=== PATIENT | male | born 1935 | race Caucasian/White ===

== ENCOUNTER → 2016-09-29 | Outpatient (CLI) | payer OTHER, MEDICARE ==
[~2016-09-29] MED LIST: ASPCH81; CLTP PO; HYDC25 PO; LISI5TAB3 PO; MAGNTAB4 PO; MULT-506 PO; PRAV20TA PO; PRLSR20 PO
[2016-09-29 12:49] LABS: ALT/SGPT 34 U/L (12-78); AST/SGOT 26 U/L (15-37); BLOOD UREA NITROGEN 15 mg/dl (7-18); BUN/CREATININE RATIO 16.2 (10-20); CALCIUM 9.2 mg/dl (8.5-10.1); CARBON DIOXIDE 24 mmol/L (21-32); CHLORIDE 102 mmol/L (98-107); CHOLESTEROL 184 mg/dl (0-200); CREATININE 0.91 mg/dl (0.60-1.40); GLUCOSE 108 mg/dl (70-99); POTASSIUM 3.8 mmol/L (3.5-5.1); SODIUM 136 mmol/L (136-145); TRIGLYCERIDES 117 mg/dl (0-150); VERY LOW DENSITY LIPOPROT CALC 23 mg/dl
[2016-09-29 12:53] LABS: ALB/GLOB RATIO 1.6 (0.9-2); ALKALINE PHOSPHATASE 72 U/L (45-117); CHOLESTEROL/HDL RATIO 3.1; HDL CHOLESTEROL 60 mg/dl
[2016-09-29 12:54] LABS: ESTIMATED AVERAGE GLUCOSE 128 mg/dl; HA1C FLAG Normal (Normal)
== END | disposition home or self-care (01) ==
LOC: C.LABSPEC 12:11
PROVIDERS: ATTEND Internal Medicine
DX: E78.5 Hyperlipidemia, unspecified (principal); I10 Essential (primary) hypertension; R73.9 Hyperglycemia, unspecified

== ENCOUNTER → 2017-03-30 | Outpatient (CLI) | payer OTHER, MEDICARE ==
[2017-03-30 13:15] LABS: ESTIMATED AVERAGE GLUCOSE 143 mg/dl; HA1C FLAG Normal (Normal)
[2017-03-30 13:30] LABS: AST/SGOT 23 U/L (15-37); BLOOD UREA NITROGEN 15 mg/dl (7-18); BUN/CREATININE RATIO 16.7 (10-20); CALCIUM 8.7 mg/dl (8.5-10.1); CARBON DIOXIDE 26 mmol/L (21-32); CHLORIDE 109 mmol/L (98-107); CHOLESTEROL 192 mg/dl (0-200); CREATININE 0.91 mg/dl (0.60-1.40); GLUCOSE 122 mg/dl (70-99); POTASSIUM 3.8 mmol/L (3.5-5.1); SODIUM 142 mmol/L (136-145)
[2017-03-30 13:34] LABS: ALB/GLOB RATIO 1.3 (0.9-2); ALKALINE PHOSPHATASE 75 U/L (45-117); ALT/SGPT 35 U/L (12-78); CHOLESTEROL/HDL RATIO 3.4; HDL CHOLESTEROL 56 mg/dl; TRIGLYCERIDES 29 mg/dl (0-150); VERY LOW DENSITY LIPOPROT CALC 6 mg/dl
== END | disposition home or self-care (01) ==
LOC: C.LABSPEC 12:21
PROVIDERS: ATTEND Internal Medicine
DX: Z00.00 Encounter for general adult medical examination without abnormal findings (principal); R73.9 Hyperglycemia, unspecified; E78.5 Hyperlipidemia, unspecified; I10 Essential (primary) hypertension

== ENCOUNTER → 2017-04-04 | Outpatient (CLI) | payer OTHER, MEDICARE | END | disposition home or self-care (01) | LOC: C.LABSPEC 13:11 | PROVIDERS: ATTEND Internal Medicine | DX: Z12.11 Encounter for screening for malignant neoplasm of colon (principal) ==

== ENCOUNTER → 2017-10-04 | Outpatient (CLI) | payer OTHER, MEDICARE ==
[2017-10-04 13:15] LABS: BASO % 0.5 %; BASO ABS # 0.04 K/uL (0-0.2); EOS ABS # 0.17 K/uL (0-0.5); HEMATOCRIT 41.3 % (42-52); IG# 0.02 K/uL (0.00-0.02); LYMPH % 22.2 %; LYMPH ABS # 1.91 K/uL (1.2-3.4); MEAN CELL VOLUME 89.4 fL (80-100); MEAN CORPUSCULAR HEMOGLOBIN 32.5 pg (25-34); MEAN CORPUSCULAR HGB CONC 36.3 g/dl (32-36); MEAN PLATELET VOLUME 10.6 fL (7.4-10.4); MONO % 9.3 %; NEUT % 65.8 %; NEUT ABS # 5.65 K/uL (1.4-6.5); PLATELET COUNT 215 K/uL (130-400); RED CELL DISTRIBUTION WIDTH SD 45.7 fL (36.4-46.3); WHITE BLOOD COUNT 8.59 K/uL (4.8-10.8)
[2017-10-04 13:37] LABS: HEMOGLOBIN A1C 6.6 % (4.5-5.6)
[2017-10-04 14:42] LABS: BLOOD UREA NITROGEN 20 mg/dl (7-18); CREATININE 0.92 mg/dl (0.60-1.40); GLUCOSE 133 mg/dl (70-99)
[2017-10-04 14:43] LABS: CALCIUM 9.1 mg/dl (8.5-10.1); CARBON DIOXIDE 26 mmol/L (21-32); CHOLESTEROL 185 mg/dl (0-200); POTASSIUM 3.6 mmol/L (3.5-5.1); SODIUM 138 mmol/L (136-145)
[2017-10-04 14:45] LABS: LDL CHOLESTEROL (DIRECT) 121 mg/dl
== END | disposition home or self-care (01) ==
LOC: C.LABSPEC 12:44
PROVIDERS: ATTEND Internal Medicine
DX: I10 Essential (primary) hypertension (principal); E78.5 Hyperlipidemia, unspecified; R73.9 Hyperglycemia, unspecified; M25.511 Pain in right shoulder; M25.512 Pain in left shoulder

== ENCOUNTER → 2017-10-05 | Outpatient (CLI) | payer OTHER, MEDICARE ==
--- NOTE | 2017-10-05 09:15 | DIAGNOSTIC IMAGING REPORT ---
RIGHT SHOULDER 3 VIEWS CLINICAL HISTORY: Right shoulder pain. FINDINGS: 3 views of the right shoulder are obtained. No prior studies are available for comparison at the time of dictation. The skeletal structures are osteopenic. No fracture or dislocation is seen. Productive degenerative change is identified at the acromioclavicular joint. Degenerative sclerosis is seen in the greater tuberosity of the humeral head. The glenohumeral articulation is preserved. The overlying soft tissues are within normal limits. The visualized right upper lobe lung parenchyma appears clear. IMPRESSION: Osteopenia and arthritic change as above. No acute bony abnormality is identified. Electronically signed by: Fadi Paez M.D. 10/05/2017 9:14 AM Dictated Date/Time: 10/05/2017 9:11 AM
--- NOTE | 2017-10-05 09:25 | DIAGNOSTIC IMAGING REPORT ---
L SHOULDER MIN 2 VIEWS ROUTINE CLINICAL HISTORY: Left shoulder pain COMPARISON: None. DISCUSSION: No fractures or dislocations are visualized. There are degenerative changes within the AC joint with inferior hypertrophic spurring. IMPRESSION: 1. No acute fractures or dislocations 2. Degenerative changes within the AC joint with inferior hypertrophic spurring Electronically signed by: Neri Barrera M.D. 10/05/2017 9:23 AM Dictated Date/Time: 10/05/2017 9:23 AM
== END | disposition home or self-care (01) ==
LOC: C.RAD 08:51
PROVIDERS: ATTEND Internal Medicine
DX: M25.511 Pain in right shoulder (principal); M25.512 Pain in left shoulder; M85.811 Other specified disorders of bone density and structure, right shoulder; M19.011 Primary osteoarthritis, right shoulder; M19.012 Primary osteoarthritis, left shoulder

== ENCOUNTER → 2017-12-07 | Outpatient (CLI) | payer OTHER, MEDICARE ==
--- NOTE | 2017-12-07 09:05 | DIAGNOSTIC IMAGING REPORT ---
R KNEE 1 OR 2 VIEWS ROUTINE HISTORY: 82 years-old Male RIGHT KNEE PAIN acute right knee pain COMPARISON: None available TECHNIQUE: 2 views of the right knee FINDINGS: 5.4 cm lesion of the distal femoral diaphysis with nonaggressive features demonstrates rings and arcs matrix. Peripheral arterial calcifications are noted. Mild tricompartmental osteoarthritis with trace joint effusion. No acute fracture or dislocation. IMPRESSION: 1. Trace joint effusion without acute fracture or dislocation. 2. Mild tricompartmental osteoarthritis. 3. 5.4 cm chondroid lesion of the distal femoral diaphysis suggests an endochondroma. The above report was generated using voice recognition software. It may contain grammatical, syntax or spelling errors. Electronically signed by: Trev Maya M.D. 12/07/2017 9:04 AM Dictated Date/Time: 12/07/2017 9:02 AM
== END | disposition home or self-care (01) ==
LOC: C.RAD 08:29
PROVIDERS: ATTEND Internal Medicine
DX: M25.561 Pain in right knee (principal); M25.861 Other specified joint disorders, right knee

== ENCOUNTER 2019-12-26 05:07 | Observation (INO) ==
[2019-12-04 13:20] LABS: Basophils # (auto) 0.01 K/uL (0-0.2); Basophils % (auto) 0.1 %; Hematocrit (blood only) 38.6 % (42-52); Hemoglobin 13.6 g/dL (14.0-18.0); Immature Granulocytes # (auto) 0.05 K/uL (0.00-0.02); Immature Granulocytes % (auto) 0.5 %; Lymphocytes # (auto) 0.81 K/uL (1.2-3.4); Lymphocytes % (auto) 8.6 %; Mean Corpuscular Hemoglobin 33.7 pg (25-34); Mean Corpuscular Hgb Conc 35.2 g/dL (32-36); Mean Corpuscular Volume 95.5 fL (80-100); Mean Platelet Volume 9.7 fL (7.4-10.4); Monocytes # (auto) 0.35 K/uL (0.11-0.59); Monocytes % (auto) 3.7 %; Neutrophils # (auto) 8.22 K/uL (1.4-6.5); Neutrophils % (auto) 87.1 %; Platelet Count 245 K/uL (130-400); RDW Coefficient of Variation 15.3 % (11.5-14.5); RDW Standard Deviation 53.3 fL (36.4-46.3); Red Blood Count 4.04 M/uL (4.7-6.1); White Blood Count 9.44 K/uL (4.8-10.8)
[2019-12-04 13:34] LABS: Partial Thromboplastin Ratio 0.9; Partial Thromboplastin Time 25.4 Seconds (21.0-31.0); Prothrombin Time 10.6 Seconds (9.0-12.0)
[2019-12-04 13:39] LABS: BUN Creatinine Ratio 22.7 (10-20); Blood Urea Nitrogen 19 mg/dl (7-18); C Reactive Protein 0.63 mg/dl (0-0.29); Carbon Dioxide 26 mmol/L (21-32); Chloride 103 mmol/L (98-107); Est GFR (African American) 93.6; Est GFR (Non-African American) 80.8; Glucose 192 mg/dl (70-99); Potassium 4.3 mmol/L (3.5-5.1); Sodium 136 mmol/L (136-145)
--- NOTE | 2019-12-07 12:04 | Anesthesiology Consultation ---
Date of Service December 07, 2019 Assessment & Plan (1) Encounter for pre-operative examination: Chart Review Chart Review: Acceptable Risk for Surgery (pending BSG AM of surgery) and Patient NOT seen in Pre Admission Testing Hx of hyperglycemia- glucose 192 on preop lab labs. Last Hgb A1C on file from 04/2019 was 6.1. Pt current on Prednisone. Will check BSG AM of surgery. Seen by PCP 09/29/19=seen for left hip pain. Referred to ortho for evaluation and treatment. History Surgery Operation Date: 12/13/19 07:15 Proposed Procedures p Left Total Hip Arthroplasty - Jose Eduardo Lim MD Height/Weight Height: 5 ft 7 in Weight: 81.647 kg Allergies Allergy/AdvReac Type Severity Reaction Status Date / Time No Known Allergies Allergy Verified 12/07/19 11:28 Medications Home Medications Medication Instructions Recorded Confirmed Last Taken aspirin 81 mg PO QAM 12/07/19 12/07/19 Unknown hydrochlorothiazide 25 mg PO QAM 12/07/19 12/07/19 Unknown ketoconazole 1 applic TOPICAL Q3D 12/07/19 12/07/19 Unknown lisinopril 20 mg PO QAM 12/07/19 12/07/19 Unknown multivitamin 1 tab PO QAM 12/07/19 12/07/19 Unknown omeprazole 20 mg PO QAM 12/07/19 12/07/19 Unknown potassium gluconate 595 mg PO QAM 12/07/19 12/07/19 Unknown pravastatin 80 mg PO QAM 12/07/19 12/07/19 Unknown prednisone 10 mg PO BID 12/07/19 12/07/19 Unknown Past Medical History Medical History GERD (gastroesophageal reflux disease) History of dysphagia NO ISSUES AFTER TAKING PRILOSEC History of prostate cancer IMPLANTED SEEDS HTN (hypertension) Hyperglycemia Hyperlipidemia Osteoarthritis Past Family History Family History Father Family history of diabetes mellitus Other Cancer Past Surgical History Surgical History H/O prostate biopsy History of arthroscopy RT KNEE History of cataract surgery RT/LEFT History of colonoscopy History of tooth extraction Hx of knee surgery Social History Smoking Status: Former smoker tobacco type: cigarettes Do You Dip or Chew Tobacco: No Smoking End Date: 1968 Hx Alcohol Use: Yes Alcohol type: beer and hard liquor alcohol intake frequency: a few times a week Hx Substance Use: No substance use type: does not use Testing Laboratory Results Laboratory Tests 04/04/19 12/04/19 12/04/19 10:00 13:00 13:00 WBC 9.44 Hgb 13.6 L Hct 38.6 L Plt Count 245 PT INR APTT Sodium 136 Potassium 4.3 Chloride 103 Carbon Dioxide 26 BUN 19 H Creatinine 0.83 Glucose 192 H Hemoglobin A1c 6.1 H 12/04/19 13:00 WBC Hgb Hct Plt Count PT 10.6 INR 1.0 APTT 25.4 Sodium Potassium Chloride Carbon Dioxide BUN Creatinine Glucose Hemoglobin A1c Electrocardiogram Date: 12/04/19 SR with premature supraventricular complexes at 83 bpm. Compared to EKG Apr 09, 2010- premature supraventricular complexes are now present, PVCs no longer present. Chest X-Ray Date: 12/04/19 Findings: + NAD Elevation of the right hemidiaphragm unchanged.
[~2019-12-26 05:07] MED LIST changes: +ACETAMINOPHEN 500 MG TAB PO SCH; -ASPCH81; +CEFAZOLIN 2000MG 2,000 MG/15 ML SYR IV SCH; -CLTP PO; +FAMOTIDINE 20 MG TAB PO SCH; +GABAPENTIN 300 MG CAP PO SCH; -HYDC25 PO; -LISI5TAB3 PO; +LR 500ML BOLUS, THEN 15ML/HR IV SCH; +LR 60ML/HR IV SCH; -MAGNTAB4 PO; +METOCLOPRAMIDE HCL 10 MG TABLET PO SCH; +METOCLOPRAMIDE HCL INJ 5 MG/ML 2 ML VIAL IV PRN; -MULT-506 PO; -PRAV20TA PO; -PRLSR20 PO; +TRANEXAMIC ACID 1,000 MG **IV Pre-op IV SCH
[2019-12-26] MEDS ORDERED: BUPIVACAINE 0.5 % 5 MG/1 ML PF 10ML VIAL ONE (05:59)
[2019-12-26] MEDS ORDERED: FAMOTIDINE 20 MG TAB PO SCH (06:00)
[2019-12-26] MEDS ORDERED: ACETAMINOPHEN 500 MG TAB PO SCH (06:00)
[2019-12-26] MEDS ORDERED: LR 60ML/HR IV SCH (06:00)
[2019-12-26] MEDS ORDERED: METOCLOPRAMIDE HCL 10 MG TABLET PO SCH (06:00)
[2019-12-26] MEDS ORDERED: TRANEXAMIC ACID 1,000 MG **IV Pre-op IV SCH (06:00)
[2019-12-26] MEDS ORDERED: GABAPENTIN 300 MG CAP PO SCH (06:00)
[2019-12-26] MEDS ORDERED: CEFAZOLIN 2000MG 2,000 MG/15 ML SYR IV SCH (06:00)
[2019-12-26] MEDS ORDERED: LR 500ML BOLUS, THEN 15ML/HR IV SCH (06:00)
[2019-12-26] MEDS ORDERED: PROPOFOL IV EMULSION 10 MG/ML 20 ML VIAL IV ONE (06:25)
[2019-12-26] MEDS ORDERED: ONDANSETRON INJ 2 MG/ML 2 ML VIAL ONE (06:25)
[2019-12-26] MEDS ORDERED: LIDOCAINE HCL 2% 2 ML VIAL/AMP(20MG/ML) INFIL ONE (06:25)
[2019-12-26] MEDS ORDERED: MIDAZOLAM HCL 1 MG/ML 2ML VIAL ONE (06:25)
[2019-12-26] MEDS ORDERED: fentaNYL citrate 100 MCG/2 ML VIAL ONE (06:26)
[2019-12-26] MEDS ORDERED: BACITRACIN INJ 50,000 UNIT VIAL ONE (06:31)
[2019-12-26] MEDS ORDERED: EPINEPHrine INJ 1 MG/ML AMP ONE (06:32)
[2019-12-26] MEDS ORDERED: BUPIVACAINE 0.5 % 5 MG/1 ML MPF 30ML VIAL ONE (06:32)
[2019-12-26] MEDS ORDERED: MoRPHine SULFATE PF 1 MG/ML 10 ML AMP/VIAL ONE (06:46)
--- NOTE | 2019-12-26 06:49 | History & Physical Bridge Note ---
Date of Service December 26, 2019 History & Physical Bridge Note I have examined the patient, reviewed the History & Physical and in the interval since the performance of the History & Physical I have noted the following changes of clinical significance: no changes noted
[2019-12-26] MEDS ORDERED: PHENYLEPHRINE 100MCG/ML 5ML SYR ONE (07:41)
[2019-12-26] MEDS ORDERED: ePHEDrine sulfate 50 MG/ML SYR ONE (07:41)
[2019-12-26] MEDS ORDERED: PHENYLEPHRINE HCL 10 MG/ML VIAL ONE (08:25)
[2019-12-26] MEDS ORDERED: NALOXONE HCL 1 MG in SODIUM CHLORIDE 0.9% 1000ML 1,000 ML IV PRN (08:30)
[2019-12-26] MEDS ORDERED: KETOROLAC TROMETHAMINE 15 MG/ML VIAL IV PRN (08:30)
[2019-12-26] MEDS ORDERED: LACTATED RINGER'S 500 ML IV PRN (08:30)
[2019-12-26] MEDS ORDERED: MEPERIDINE HCL 25 MG/ML CARP/VIAL IV PRN (08:30)
[2019-12-26] MEDS ORDERED: PROMETHAZINE HCL 25 MG in SODIUM CHLORIDE 0.9% 50 ML IV PRN (08:30)
[2019-12-26] MEDS ORDERED: MoRPHine SULFATE 2 MG/ML CARP IV PRN (08:30)
[2019-12-26] MEDS ORDERED: NALOXONE HCL 0.08 MG in SYRINGE 1.8 ML IV PRN (08:30)
[2019-12-26] MEDS ORDERED: NALBUPHINE HCL INJ 10 MG/ML AMP IV PRN (08:30)
[2019-12-26] MEDS ORDERED: MoRPHine SULFATE PF 1 MG/ML 10 ML AMP/VIAL INT SPINAL ONE (08:30)
[2019-12-26] MEDS ORDERED: ONDANSETRON INJ 2 MG/ML 2 ML VIAL IV PRN (08:30)
[2019-12-26] MEDS ORDERED: NALOXONE HCL 0.4 MG/1 ML VIAL/CARP IV PRN ×2 (08:30→09:38)
[2019-12-26] MEDS ORDERED: NO NARCOTICS OR SEDATIVES SCH (08:30)
[2019-12-26] MEDS ORDERED: DiphenhydrAMINE HCL 50 MG/ML VIAL IV PRN (08:30)
[2019-12-26] MEDS ORDERED: HYDROmorphone INJ 0.5 MG/0.5 ML SYR IV PRN (08:30)
[2019-12-26] MEDS ORDERED: SODIUM CHLORIDE 0.9% 1000ML 1,000 ML IV SCH (08:30)
[2019-12-26] MEDS ORDERED: ePHEDrine sulfate 50 MG/ML AMP IV PRN (08:30)
--- NOTE | 2019-12-26 08:39 | Post Operative Brief Note ---
PG Immediate Post Op with CF Date of Surgery December 26, 2019 Pre & Post Diagnosis Operation Date: 12/26/19 07:00 Pre-Op Diagnosis: Left Hip Degenerative Joint Disease Post-Op Diagnosis: Left Hip Degenerative Joint Disease I identified the patient and participated in the time-out.: Yes Procedure Operation Date: 12/26/19 07:00 Actual Procedures p Left Total Hip Arthroplasty--Uncemented(Left) - Jose Eduardo Lim MD Surgeon Jose Eduardo Lim MD Family Consumer Science Teacher German, PAC Estimated Blood Loss 200 Findings Consistent with Post-Op Diagnosis Fluids 1400 cc Specimens Specimen Description: A. Left Femoral Head Drains Amador Catheter Anesthesia Type Spinal MAC Complications none Disposition Accompanied Patient To Recovery: Yes Disposition: Recovery Room
--- NOTE | 2019-12-26 08:54 | Operative Report ---
Post Operative Report Pre & Post Diagnosis Operation Date: 12/26/19 07:00 Pre-Op Diagnosis: Left Hip Degenerative Joint Disease Post-Op Diagnosis: Left Hip Degenerative Joint Disease I identified the patient and participated in the time-out.: Yes Procedure Operation Date: 12/26/19 07:00 Actual Procedures p Left Total Hip Arthroplasty--Uncemented(Left) - Jose Eduardo Lim MD Surgeon Jose Eduardo Lim MD Butt Welder German, PAC Estimated Blood Loss 200 Findings Consistent with Post-Op Diagnosis Operative findings revealed advanced left hip DJD with a significant joint effusion and grade 4 [id number] disease. He had just a small anterior acetabular osteophyte. Mostly just collapse and degeneration of the femoral head without large osteophytes. Fluids 1400 cc. Specimens Left femoral head sent for pathology. Drains None. Anesthesia Type Spinal MAC Complications none Disposition Disposition: Recovery Room Indications Patient is an 84-year-old very active independent gentleman who is had about a 9-month history of progressive increasing left hip pain. X-rays show progressive hip arthritis. He had an MRI which showed marketed edema in the femoral head and some collapse and avascular gross of the superior aspect. He failed all conservative care. He was actually scheduled for total hip repla cement several months ago but canceled due to the COVID epidemic. He now elected proceed with surgical treatment. He was markedly debilitated by his disease and having difficulty maintaining an independent lifestyle. Description of Procedure Operative implants consisted of: 1. Biomet G7 size 52 mm acetabular shell. 2. 6.5 cancellus acetabular screws 1 of 35 mm length and 1 to 20 mm length. 3. An apex hole eliminator. 4. Highly cross-linked polyethylene liner with a bruno placed inferior and posterior and a 52 mm outer diameter and 36 mm inner diameter. 5. Mahamed Corail size 11 KLA femoral stem. 6. +12/36 mm ceramic articular ball. Patient was taken to the operating room identified and placed on the operating table supine position protectors were properly padded. IV antibiotics arrived by anesthesia team. Spinal anesthetic had been implemented in the holding area. A Amador catheter was placed in sterile fashion. The patient then placed in the right lateral decubitus position. An axillary roll was placed. A Stulberg hip positioner was used for positioning. The left hip and leg were then prepped and draped in usual sterile fashion. A posterior lateral approach to the left hip was then performed through a curvilinear incision centered over the greater trochanter. Sharp dissection was cut through subcutaneous this down to level the IT band gluteal fascia. The IT band gluteal fascia then incised longitudinally in line with the skin incision. The underlying greater truck bursa was excised. The piriformis and external rotators were tagged and taken off the posterior aspect of the hip joint capsule. Great care was taken throughout the procedure to protect the sciatic nerve at all times. Posterior capsulotomy was then performed with large flap for later repair. Hip was internally rotated and dislocated. Femoral neck osteotomy cut was made with Final Cut about 10 mm above the lesser trochanter. Femoral head was removed and sent for pathology. The femur was retracted anteriorly and attention then drawn the acetabulum. The acetabular labrum was excised. The pulmonary fat was excised. Sequential reaming the acetabular was then performed beginning with a size 45 and progressing up to a 51. I did reamed just the entrance with a 52 reamer. A 52 mm Biomet G7 acetabular shell was then placed in about 40 degrees lateral opening and 20 degrees of anteversion. It was fixed with two 6.5 cancellus acetabular screws. Small anterior osteophyte was removed. Trial liner was placed. Attention drawn the femur. Of note, upon reaming the acetabulum we did perforate the very most inner table on her last reamer. I did place some bone graft centrally in order to restore the medial wall. This did not in any way sacrificed the cup position were stability. The proximal femur was entered with a cookie-cutter followed by canal finder. I then broached begin the size 8 and progressing up to 11. Got excellent fit at 11. I then trialed the hip and the soft tissue tension tension and laxity was pretty significant. He did have quite a bit of natural offset. Therefore used the +12 articular ball to maximize stability. Our intent was to place a +4 offset liner but the permanent liner was on back order. Therefore I had to a place a standard liner with a bruno placed posterior and inferior to maximize his stability. As stated previously, he did have quite a bit of soft tissue laxity with quite a bit of offset we wanted to maximize his stability. I elected to place these implants. All trial implants were removed. An apex eliminator was placed. A highly cross-linked polyethylene liner with a bruno placed inferior and posterior was impacted in position. A size 11 KLA femoral stem was impacted in position. A +12 articular ball was placed. I contemplated using a longer neck to maximize the soft tissue tension but I did not want to place a chrome cobalt head on a titanium stem if at all possible. I felt the stability was adequate with this construct despite the slight soft tissue laxity and we elect to place these implants. Attention drawn toward closing. Wound was irrigated cups out to pulsatile lavage solution. I did inject locally with 60 cc of half percent Marcaine with epinephrine. The posterior capsule and external rotators were then repaired through drill holes in the posterior trochanter with #2 Tycron suture. The IT band gluteal fascia then closed #1 PDS suture running fashion the subcutaneous tissue then closed with 2 layers the deep layer #1 Vicryl suture subcutaneous tissue with 2 Dexon suture in a buried interrupted fashion the skin was then closed with skin minda. Leg was then cleaned and dried a sterile dressing composed Xeroform, 4 x 4's, sterile ABD pad and foam tape was applied. Patient then transferred to the recovery room in stable condition. Patient tolerated procedure well no complications. I attest to the content of the Intraoperative Record and any orders documented therein. Any exceptions are noted below.
--- NOTE | 2019-12-26 09:11 | Anesthesiology Progress Note ---
Date of Service December 26, 2019 Anesthesia Post Procedure Vital Signs Vital Signs: Temp Pulse Pulse Resp BP Pulse Ox 12/26/19 09:00 36.8 C 85 16 99/54 L 96 12/26/19 08:50 81 14 99/64 L 94 12/26/19 08:40 37.0 C 88 14 100/63 97 12/26/19 06:22 36.9 C 87 20 161/86 H 95 Transfer of Care Handoff Completed per policy Notes Mental Status: alert / awake / arousable and participated in evaluation Patient Amnestic to Procedure: Yes Nausea / Vomiting: adequately controlled Pain: adequately controlled Airway Patency, RR, SpO2: stable & adequate BP & HR: stable & adequate Hydration State: stable & adequate Neuraxial Anesthesia: was administered and sensory block is resolving Anesthetic Complications: no major complications apparent
--- NOTE | 2019-12-26 09:16 | XRay Report ---
XR hip 1V LT w pelvis CLINICAL HISTORY: IN PACU - A/P PELVIS and LATERAL HIP COMPARISON: September 15, 2019 DISCUSSION: Radiotherapy prostate seeds are again visualized. There are postsurgical changes of a tot al left hip arthroplasty. The femoral and acetabular components appear well seated. There are no acut e fractures. There is gas present within the soft tissues consistent with recent surgery. There are o verlying skin minda. IMPRESSION: Postsurgical changes of a total left hip arthroplasty. ACT 112: Negative or not required by law. Electronically signed by: Neri Barrera M.D. 12/26/2019 9:15 AM
[2019-12-26] MEDS ORDERED: MULTIVITAMIN TAB PO SCH (09:38)
[2019-12-26] MEDS ORDERED: ALUMINUM/MAGNESIUM SUSP 30 ML UDC PO PRN (09:38)
[2019-12-26] MEDS ORDERED: MAGNESIUM HYDROXIDE SUSP 30 ML UDC PO PRN (09:38)
[2019-12-26] MEDS ORDERED: bisacodyL 10 MG SUPP PR PRN (09:38)
[2019-12-26] MEDS: SODIUM CHLORIDE 0.9% 1000ML 1,000 ML IV SCH ×2 (11:21→21:37)
[2019-12-26] MEDS: ASPIRIN 81 MG ECTAB PO SCH ×2 (11:23→21:42)
[2019-12-26] MEDS: hydroCHLOROthiazide 25 MG TAB PO SCH (11:23)
[2019-12-26] MEDS: PRAVASTATIN SOD 40 MG TAB PO SCH (11:24)
[2019-12-26] MEDS: predniSONE 10 MG TABLET PO SCH ×2 (11:24→21:42)
[2019-12-26] MEDS: lisinopriL 20 MG TAB PO SCH (11:24)
[2019-12-26] MEDS: MULTIVITAMIN TAB PO SCH (11:24)
[2019-12-26] MEDS: DOCUSATE SODIUM 100 MG CAP PO SCH ×2 (11:24→21:42)
[2019-12-26] MEDS: KETOROLAC TROMETHAMINE 15 MG/ML VIAL IV SCH ×3 (11:25→21:42)
--- NOTE | 2019-12-26 13:24 | Progress Notes ---
DATE: 12/26/2019 SUBJECTIVE: An 84-year-old gentleman postop from a left hip replacement. He is doing well. He says he has not felt this well in 6 months. He has got no pain. No chest pain or shortness of breath. Not feeling dizzy or lightheaded. OBJECTIVE: VITAL SIGNS: Temperature 36.6. Vital signs stable. GENERAL: Shows a pleasant elderly male. He is sitting up in bed and looks completely comfortable. LUNGS: Clear to auscultation. HEART: Has a regular rate and rhythm. ABDOMEN: Soft, nontender, nondistended. EXTREMITIES: Grossly neurovascularly intact except as follows: Examination of the left hip and leg reveals the leg lengths to be equal. Dressing is clean, dry and intact. Thigh is soft and supple. He can dorsiflex and plantarflex his foot appropriately. He is neurologically intact. X-RAYS: X-rays of the left hip from recovery room are reviewed. It shows a left uncemented total hip arthroplasty. Components looked to be in good position. No signs of problems. The AP is a fairly rotated film. ASSESSMENT: An 84-year-old gentleman postoperative from a left hip replacement, doing well. Pain is controlled. Hip is located. He is neurologically intact. PLAN: 1. DVT prophylaxis including thigh-high TEDs, SCDs, and aspirin twice a day. 2. PT/OT. Weight bear as tolerated. Left total hip protocol. 3. Pain control, doing well with current pain regimen. 4. IV antibiotics x24 hours. 5. Disposition: Plan to discharge to home. His daughter is going to come and stay a couple weeks with him. He will be discharged with home health if all goes well in the hospital.
[2019-12-26] MEDS: ACETAMINOPHEN 500 MG TAB PO SCH ×2 (13:33→21:42)
[2019-12-26] MEDS ORDERED: TRANEXAMIC ACID / 0.7% NACL 1,000 MG/100 ML BAG IV SCH (14:30)
[2019-12-26] MEDS: CEFAZOLIN 2000MG 2,000 MG/15 ML SYR IV SCH ×2 (14:46→22:14)
[2019-12-26] MEDS: KETOCONAZOLE~ORDER AWAITING ACTION SCH (16:32)
[2019-12-26] MEDS: FERROUS GLUCONATE 324 MG TAB PO SCH (16:34)
[2019-12-26] MEDS: SENNA 8.6 MG TAB PO SCH (21:42)
[2019-12-27] MEDS: KETOCONAZOLE~ORDER AWAITING ACTION SCH ×3 (00:17→16:34)
[2019-12-27] MEDS ORDERED: ONDANSETRON INJ 2 MG/ML 2 ML VIAL IV PRN (02:30)
[2019-12-27] MEDS ORDERED: HYDROmorphone INJ 0.5 MG/0.5 ML SYR IV PRN (02:30)
[2019-12-27] MEDS ORDERED: TRAMADOL HCL 50 MG TABLET PO PRN (02:30)
[2019-12-27] MEDS ORDERED: DC INTRASPINAL MORPHINE ONE (02:30)
[2019-12-27] MEDS: KETOROLAC TROMETHAMINE 15 MG/ML VIAL IV SCH ×4 (03:42→21:44)
[2019-12-27 05:38] LABS: Hematocrit (blood only) 27.8 % (42-52); Hemoglobin 10.1 g/dL (14.0-18.0); Immature Granulocytes # (auto) 0.02 K/uL (0.00-0.02); Immature Granulocytes % (auto) 0.2 %; Lymphocytes # (auto) 0.87 K/uL (1.2-3.4); Lymphocytes % (auto) 9.8 %; Mean Corpuscular Hemoglobin 34.4 pg (25-34); Mean Corpuscular Hgb Conc 36.3 g/dL (32-36); Mean Corpuscular Volume 94.6 fL (80-100); Monocytes # (auto) 0.74 K/uL (0.11-0.59); Monocytes % (auto) 8.4 %; Neutrophils # (auto) 7.23 K/uL (1.4-6.5); Neutrophils % (auto) 81.6 %; Platelet Count 187 K/uL (130-400); RDW Coefficient of Variation 14.5 % (11.5-14.5); Red Blood Count 2.94 M/uL (4.7-6.1); White Blood Count 8.86 K/uL (4.8-10.8)
[2019-12-27 06:09] LABS: BUN Creatinine Ratio 20.5 (10-20); Calcium 7.9 mg/dl (8.5-10.1); Creatinine Clr Calc Pharmacy 74.5 ml/min; Est GFR (African American) 97.1; Est GFR (Non-African American) 83.8
[2019-12-27] MEDS: ACETAMINOPHEN 500 MG TAB PO SCH ×3 (06:20→21:37)
--- NOTE | 2019-12-27 08:17 | Progress Notes ---
DATE: 12/27/2019 SUBJECTIVE: An 84-year-old gentleman postop day 1 from a left hip replacement. He is doing well. Really denies any significant pain. No chest pain or shortness of breath. Not feeling dizzy or lightheaded. OBJECTIVE: VITAL SIGNS: Temperature 37.0. Vital signs stable. GENERAL: Shows a pleasant elderly male. He is sitting up in bed, looks comfortable. He is awake, alert and oriented. EXTREMITIES: Examination of the left hip reveals the leg lengths to be equal. Hip is located. Dressing is clean, dry, and intact. NEUROLOGIC: He is neurologically intact. LABORATORY DATA: Hemoglobin is 10.1, hematocrit 27.8. Electrolytes are stable. ASSESSMENT: An 84-year-old gentleman postop day 1 from a left hip replacement, doing well. His pain is controlled. Hip is located. He is neurologically intact. He is anemic, but asymptomatic. PLAN: 1. DVT prophylaxis including thigh-high TEDs, SCDs, and aspirin twice a day. 2. PT/OT. Weight bear as tolerated. Left total hip protocol. 3. Pain control, doing pretty well with current pain regimen. 4. Anemia. Currently asymptomatic. We will continue iron supplementation. 5. Disposition: He is planning to be discharged to home with some home health once medically stable and adequately recovered. We will likely discharge tomorrow with home health.
[2019-12-27] MEDS: hydroCHLOROthiazide 25 MG TAB PO SCH (08:47)
[2019-12-27] MEDS: DOCUSATE SODIUM 100 MG CAP PO SCH ×2 (08:47→21:37)
[2019-12-27] MEDS: ASPIRIN 81 MG ECTAB PO SCH ×2 (08:47→21:37)
[2019-12-27] MEDS: MULTIVITAMIN TAB PO SCH (08:47)
[2019-12-27] MEDS: predniSONE 10 MG TABLET PO SCH ×2 (08:48→21:39)
[2019-12-27] MEDS: PRAVASTATIN SOD 40 MG TAB PO SCH (08:48)
[2019-12-27] MEDS: FERROUS GLUCONATE 324 MG TAB PO SCH ×2 (08:48→16:35)
[2019-12-27] MEDS: PANTOprazole 40 MG TAB PO SCH (08:49)
[2019-12-27] MEDS: lisinopriL 20 MG TAB PO SCH (08:49)
[2019-12-27] MEDS: SENNA 8.6 MG TAB PO SCH (21:37)
[2019-12-28] MEDS: KETOCONAZOLE~ORDER AWAITING ACTION SCH ×2 (00:37→08:27)
[2019-12-28] MEDS: ACETAMINOPHEN 500 MG TAB PO SCH ×2 (05:03→13:06)
[2019-12-28] MEDS: KETOROLAC TROMETHAMINE 15 MG/ML VIAL IV SCH (05:05)
[2019-12-28] MEDS: hydroCHLOROthiazide 25 MG TAB PO SCH (08:26)
[2019-12-28] MEDS: PANTOprazole 40 MG TAB PO SCH (08:26)
[2019-12-28] MEDS: ASPIRIN 81 MG ECTAB PO SCH (08:26)
[2019-12-28] MEDS: lisinopriL 20 MG TAB PO SCH (08:26)
[2019-12-28] MEDS: PRAVASTATIN SOD 40 MG TAB PO SCH (08:26)
[2019-12-28] MEDS: predniSONE 10 MG TABLET PO SCH (08:26)
[2019-12-28] MEDS: DOCUSATE SODIUM 100 MG CAP PO SCH (08:26)
[2019-12-28] MEDS: MULTIVITAMIN TAB PO SCH (08:27)
[2019-12-28] MEDS: FERROUS GLUCONATE 324 MG TAB PO SCH (08:27)
--- NOTE | 2019-12-28 11:24 | Progress Notes ---
DATE: 12/28/2019 SUBJECTIVE: An 84-year-old gentleman postop day 2 from left hip replacement. He is doing pretty well. Just describes some soreness in the incision area. Pain is well controlled. No chest pain, no shortness of breath. Not feeling dizzy or lightheaded. OBJECTIVE: VITAL SIGNS: Temperature 36.7. Vital signs stable. GENERAL: Physical examination shows a pleasant elderly male. He is sitting up in bed, looks pretty comfortable. He is awake, alert, oriented and appropriate. EXTREMITIES: Examination of the left hip reveals the dressing to be in place. There is some bruising around the incision site and just a little bit of bloody drainage on the dressing. His leg lengths were equal. Hip is located. He can dorsiflex and plantarflex his foot appropriately. He is neurologically intact. ASSESSMENT: An 84-year-old gentleman postop day 2 from left hip replacement, doing pretty well. Pain is controlled. Hip is located. He is neurologically intact. PLAN: 1. DVT prophylaxis include thigh-high TEDs, SCDs and aspirin twice a day. 2. PT/OT, weight bear as tolerated. Left total hip protocol. 3. Pain control, doing pretty well with current pain regimen. 4. Disposition: Plan to discharge to home with some home health later today.
--- NOTE | 2020-01-01 16:19 | Discharge Summary ---
Date of Service January 01, 2020 Admission HPI Per Admitting Provider Documented in the admission H&P Admission Exam (Per Admitting) Constitutional Documented in the admission H&P Discharge Data Consultations 12/27/19 08:00 Consult Case Management - Discharge Planning Routine Procedures Performed Operation Date: 12/26/19 07:00 Actual Procedures p Left Total Hip Arthroplasty--Uncemented(Left) - Jose Eduardo Lim MD Hospital Course (1) Status post total hip replacement, left: 84-year-old male admitted on 12/26/2019 underwent total hip arthroplasty. He tolerated procedure well. There were no complications. He is transferred to the PACU postoperatively and later the orthopedic for further care. He is given Ancef for antibiotic prophylaxis. He is given CAIT stockings, SCDs, and aspirin for DVT prophylaxis. Hemoglobin, hematocrit, and vital signs were monitored during his hospital stay and remained stable. He did have some postoperative anemia and was given an iron supplement. He did not require blood transfusions. There were no complications. By postoperative day 2 he was tolerating a regular diet, pain was controlled with oral pain medicine, and is participating in physical therapy. Postoperative day 2 he was discharged home set up with home health services. He is given printed discharge instruction as well as new prescriptions for extra strength Tylenol, aspirin, and iron supplement and tramadol. Continue physical therapy. He is weightbearing as tolerated. Continue CAIT stockings. Continue total hip precautions. Follow-up in approximately 2 weeks postop or sooner if any problems or concerns Coding Level of Care Code None Diagnoses Status post total hip replacement, left Z96.642
== END 2019-12-28 13:57 | disposition home health service (06) ==
LOC: ASU 05:07 → 3E 05:07
DX: M16.12 Unilateral primary osteoarthritis, left hip; M65.852 Other synovitis and tenosynovitis, left thigh; Z79.82 Long term (current) use of aspirin; E78.00 Pure hypercholesterolemia, unspecified; I10 Essential (primary) hypertension; Z79.899 Other long term (current) drug therapy